=== PATIENT | male | born 1960 | race Caucasian/White ===

== ENCOUNTER 2023-06-19 11:48 | Inpatient (IN) | payer MEDICARE ==
[2023-06-20] MEDS ORDERED: Hyoscyamine SL 0.125 MG TAB PO PRN (12:59)
[2023-06-20] MEDS ORDERED: Bisacodyl 5 MG TAB PO PRN (13:02)
[2023-06-20] MEDS ORDERED: Ondansetron ODT 4 MG TAB SL PRN (13:02)
[2023-06-20] MEDS ORDERED: FLU VACC QS2023(65UP)/MF59C/PF 60 MCG/0.5 ML SYRINGE IM ONE (17:00)
[2023-06-20] MEDS: Terazosin HCl 1 MG CAP PO SCH (20:40)
[2023-06-20] MEDS: Acetaminophen 325 MG TAB PO PRN (20:41)
[2023-06-20] MEDS: levETIRAcetam 500 MG TAB PO SCH (20:41)
[2023-06-20] MEDS: traZODone HCl 50 MG TAB PO SCH (20:41)
[2023-06-20] MEDS: Amantadine HCl 100 mg Capsule PO SCH (20:42)
[2023-06-20] MEDS: Metoprolol Tartrate 50 MG TAB PO SCH (20:42)
[2023-06-20] MEDS: Donepezil HCl 5 MG TAB PO SCH (20:42)
[2023-06-20] MEDS: QUEtiapine 25 MG TAB PO SCH (20:42)
[2023-06-20] MEDS: Melatonin 3 MG TAB PO SCH (20:42)
[2023-06-20] MEDS: Famotidine 20 MG TAB PO SCH (20:42)
[2023-06-20] MEDS: Atorvastatin Calcium 10 MG TAB PO SCH (20:42)
[2023-06-21] MEDS: Acetaminophen 325 MG TAB PO PRN ×3 (03:03→20:30)
[2023-06-21 05:33] LABS: #Basophils 0.1 thou/uL (0.0-0.2); #Eosinphils 0.2 thou/uL (0.0-0.7); #Lymphocytes 1.7 thou/uL (1.20-3.40); #Monocytes 0.6 thou/uL (0.11-0.59); #Neutrophils 3.1 thou/uL (1.40-6.50); %Basophils 1.3 % (0.0-1.0); %Eosinophils 2.8 % (0.0-10.0); %Lymphocytes 29.8 % (21.0-51.0); %Monocytes 10.7 % (0.0-10.0); %Neutrophils 55.4 % (42.0-75.0); Hematocrit 47.6 % (42.0-52.0); Mean Corpuscular HGB CONC 33.6 g/dL (32.0-36.0); Mean Corpuscular Hemoglobin 31.3 pg (27.0-31.0); Mean Corpuscular Volume 93.3 fl (78.0-98.0); Mean Platelet Volume 9.3 fL (7.4-10.4); Platelet Count 209 10x3/uL (130-400); RBC Distribution Width 12.3 % (11.5-14.5); White Blood Cell (WBC) Count 5.7 10x3/uL (4.8-10.8)
[2023-06-21 05:47] LABS: ALT (SGPT) 17 U/L (8-55); AST (SGOT) 17 U/L (5-34); Albumin 4.2 g/dL (3.4-4.8); Alkaline Phosphatase 92 U/L (40-110); Anion Gap 12 mmol/L (10-20); BUN (Urea Nitrogen) 12 mg/dL (8.4-25.7); Bilirubin, Total 0.5 mg/dL (0.2-1.2); Calc. Creatinine Clearance 125 mL/min (70-130); Calcium 9.9 mg/dL (7.8-10.44); Carbon Dioxide 29 mmol/L (23-31); Chloride 105 mmol/L (98-107); Estimated GFR 97; Globulin 2.5 g/dL (2.4-3.5); Glucose 91 mg/dL (80-115); Potassium 4.4 mmol/L (3.5-5.1); Protein, Total 6.7 g/dL (5.8-8.1); Sodium 142 mmol/L (136-145)
[2023-06-21] MEDS: Venlafaxine HCl 25 MG TAB PO SCH (08:16)
[2023-06-21] MEDS: levETIRAcetam 500 MG TAB PO SCH ×2 (08:19→20:30)
[2023-06-21] MEDS: Amlodipine 10 MG TAB PO SCH (08:20)
[2023-06-21] MEDS: Senokot S 8.6-50 MG TAB PO PRN (08:21)
[2023-06-21] MEDS: Losartan 25 MG TAB PO SCH (08:21)
[2023-06-21] MEDS: Metoprolol Tartrate 50 MG TAB PO SCH ×2 (08:21→20:31)
[2023-06-21] MEDS: Famotidine 20 MG TAB PO SCH ×2 (08:21→20:32)
[2023-06-21] MEDS: Allopurinol 100 MG TAB PO SCH (08:22)
[2023-06-21] MEDS: Amantadine HCl 100 mg Capsule PO SCH ×2 (08:22→20:31)
[2023-06-21] MEDS ORDERED: Hyoscyamine SL 0.125 MG TAB PO PRN (12:00)
[2023-06-21] MEDS: traZODone HCl 50 MG TAB PO SCH (20:30)
[2023-06-21] MEDS: Terazosin HCl 1 MG CAP PO SCH (20:30)
[2023-06-21] MEDS: QUEtiapine 25 MG TAB PO SCH (20:31)
[2023-06-21] MEDS: Donepezil HCl 5 MG TAB PO SCH (20:31)
[2023-06-21] MEDS: Melatonin 3 MG TAB PO SCH (20:31)
[2023-06-21] MEDS: Atorvastatin Calcium 10 MG TAB PO SCH (20:32)
[2023-06-21] MEDS: Artificial Tear Sol 15 ML BOT EA EYE PRN (20:35)
[2023-06-21] MEDS: tiZANidine HCl 4 MG TAB PO PRN (20:36)
[2023-06-22] MEDS: Acetaminophen 325 MG TAB PO PRN (01:50)
[2023-06-22] MEDS: Venlafaxine HCl 25 MG TAB PO SCH (08:14)
[2023-06-22] MEDS: levETIRAcetam 500 MG TAB PO SCH ×2 (08:14→20:15)
[2023-06-22] MEDS: Famotidine 20 MG TAB PO SCH ×2 (08:15→20:15)
[2023-06-22] MEDS: Amantadine HCl 100 mg Capsule PO SCH ×2 (08:15→20:16)
[2023-06-22] MEDS: Amlodipine 10 MG TAB PO SCH (08:15)
[2023-06-22] MEDS: Allopurinol 100 MG TAB PO SCH (08:15)
[2023-06-22] MEDS: Metoprolol Tartrate 50 MG TAB PO SCH ×2 (08:15→20:16)
[2023-06-22] MEDS: Losartan 25 MG TAB PO SCH (08:16)
[2023-06-22] MEDS: Artificial Tear Sol 15 ML BOT EA EYE PRN ×2 (08:16→20:44)
[2023-06-22] MEDS: tiZANidine HCl 4 MG TAB PO PRN (20:14)
[2023-06-22] MEDS: Melatonin 3 MG TAB PO SCH (20:15)
[2023-06-22] MEDS: Terazosin HCl 1 MG CAP PO SCH (20:15)
[2023-06-22] MEDS: QUEtiapine 25 MG TAB PO SCH (20:16)
[2023-06-22] MEDS: traZODone HCl 50 MG TAB PO SCH (20:16)
[2023-06-22] MEDS: Atorvastatin Calcium 10 MG TAB PO SCH (20:16)
[2023-06-22] MEDS: Donepezil HCl 5 MG TAB PO SCH (20:16)
[2023-06-23] MEDS: Acetaminophen 325 MG TAB PO PRN (03:11)
[2023-06-23 05:21] LABS: #Eosinphils 0.2 thou/uL (0.0-0.7); #Lymphocytes 1.8 thou/uL (1.20-3.40); #Monocytes 0.7 thou/uL (0.11-0.59); #Neutrophils 3.8 thou/uL (1.40-6.50); %Basophils 0.7 % (0.0-1.0); %Eosinophils 2.5 % (0.0-10.0); %Lymphocytes 27.3 % (21.0-51.0); %Monocytes 10.8 % (0.0-10.0); %Neutrophils 58.8 % (42.0-75.0); Hematocrit 48.5 % (42.0-52.0); Hemoglobin 16.6 g/dL (14.0-18.0); Mean Corpuscular HGB CONC 34.1 g/dL (32.0-36.0); Mean Corpuscular Hemoglobin 31.8 pg (27.0-31.0); Mean Corpuscular Volume 93.3 fl (78.0-98.0); Mean Platelet Volume 8.5 fL (7.4-10.4); Platelet Count 195 10x3/uL (130-400); RBC Distribution Width 12.2 % (11.5-14.5); White Blood Cell (WBC) Count 6.5 10x3/uL (4.8-10.8)
[2023-06-23 05:35] LABS: Anion Gap 14 mmol/L (10-20); Calc. Creatinine Clearance 126 mL/min (70-130); Calcium 9.7 mg/dL (7.8-10.44); Carbon Dioxide 25 mmol/L (23-31); Chloride 105 mmol/L (98-107); Estimated GFR 99; Glucose 96 mg/dL (80-115); Potassium 4.1 mmol/L (3.5-5.1); Sodium 140 mmol/L (136-145)
[2023-06-23] MEDS: levETIRAcetam 500 MG TAB PO SCH ×2 (08:55→21:09)
[2023-06-23] MEDS: Losartan 25 MG TAB PO SCH (08:55)
[2023-06-23] MEDS: Famotidine 20 MG TAB PO SCH ×2 (08:55→21:10)
[2023-06-23] MEDS: Amlodipine 10 MG TAB PO SCH (08:55)
[2023-06-23] MEDS: Allopurinol 100 MG TAB PO SCH (08:55)
[2023-06-23] MEDS: Amantadine HCl 100 mg Capsule PO SCH ×2 (08:55→21:10)
[2023-06-23] MEDS: Metoprolol Tartrate 50 MG TAB PO SCH ×2 (08:55→21:10)
[2023-06-23] MEDS: Venlafaxine HCl 25 MG TAB PO SCH (08:56)
[2023-06-23] MEDS: Artificial Tear Sol 15 ML BOT EA EYE PRN (08:57)
[2023-06-23] MEDS: Melatonin 3 MG TAB PO SCH (21:09)
[2023-06-23] MEDS: Terazosin HCl 1 MG CAP PO SCH (21:09)
[2023-06-23] MEDS: traZODone HCl 50 MG TAB PO SCH (21:09)
[2023-06-23] MEDS: Atorvastatin Calcium 10 MG TAB PO SCH (21:10)
[2023-06-23] MEDS: Donepezil HCl 5 MG TAB PO SCH (21:10)
[2023-06-23] MEDS: QUEtiapine 25 MG TAB PO SCH (21:10)
[2023-06-23] MEDS: tiZANidine HCl 4 MG TAB PO PRN (22:34)
[2023-06-24] MEDS: levETIRAcetam 500 MG TAB PO SCH ×2 (08:49→20:59)
[2023-06-24] MEDS: Amlodipine 10 MG TAB PO SCH (08:49)
[2023-06-24] MEDS: Venlafaxine HCl 25 MG TAB PO SCH (08:49)
[2023-06-24] MEDS: Metoprolol Tartrate 50 MG TAB PO SCH ×2 (08:50→20:59)
[2023-06-24] MEDS: Famotidine 20 MG TAB PO SCH ×2 (08:50→20:59)
[2023-06-24] MEDS: Allopurinol 100 MG TAB PO SCH (08:50)
[2023-06-24] MEDS: Losartan 25 MG TAB PO SCH (08:50)
[2023-06-24] MEDS: Acetaminophen 325 MG TAB PO PRN (08:50)
[2023-06-24] MEDS: Amantadine HCl 100 mg Capsule PO SCH ×2 (08:51→20:58)
[2023-06-24] MEDS: Terazosin HCl 1 MG CAP PO SCH (20:58)
[2023-06-24] MEDS: tiZANidine HCl 4 MG TAB PO PRN (20:58)
[2023-06-24] MEDS: Atorvastatin Calcium 10 MG TAB PO SCH (20:58)
[2023-06-24] MEDS: traZODone HCl 50 MG TAB PO SCH (20:59)
[2023-06-24] MEDS: Donepezil HCl 5 MG TAB PO SCH (20:59)
[2023-06-24] MEDS: QUEtiapine 25 MG TAB PO SCH (20:59)
[2023-06-24] MEDS: Melatonin 3 MG TAB PO SCH (20:59)
[2023-06-25] MEDS: Acetaminophen 325 MG TAB PO PRN ×2 (02:03→15:58)
[2023-06-25] MEDS: Artificial Tear Sol 15 ML BOT EA EYE PRN (08:24)
[2023-06-25] MEDS: levETIRAcetam 500 MG TAB PO SCH ×2 (08:26→21:10)
[2023-06-25] MEDS: Famotidine 20 MG TAB PO SCH ×2 (08:26→21:09)
[2023-06-25] MEDS: Amlodipine 10 MG TAB PO SCH (08:26)
[2023-06-25] MEDS: Metoprolol Tartrate 50 MG TAB PO SCH ×2 (08:26→21:10)
[2023-06-25] MEDS: Losartan 25 MG TAB PO SCH (08:26)
[2023-06-25] MEDS: Venlafaxine HCl 25 MG TAB PO SCH (08:27)
[2023-06-25] MEDS: Amantadine HCl 100 mg Capsule PO SCH ×2 (08:27→21:09)
[2023-06-25] MEDS: Allopurinol 100 MG TAB PO SCH (08:27)
[2023-06-25] MEDS: tiZANidine HCl 4 MG TAB PO PRN ×2 (11:57→21:10)
[2023-06-25] MEDS: QUEtiapine 25 MG TAB PO SCH (21:09)
[2023-06-25] MEDS: Atorvastatin Calcium 10 MG TAB PO SCH (21:09)
[2023-06-25] MEDS: Melatonin 3 MG TAB PO SCH (21:09)
[2023-06-25] MEDS: Senokot S 8.6-50 MG TAB PO PRN (21:09)
[2023-06-25] MEDS: Donepezil HCl 5 MG TAB PO SCH (21:09)
[2023-06-25] MEDS: traZODone HCl 50 MG TAB PO SCH (21:10)
[2023-06-25] MEDS: Terazosin HCl 1 MG CAP PO SCH (21:10)
[2023-06-26] MEDS: Acetaminophen 325 MG TAB PO PRN ×2 (04:38→20:47)
[2023-06-26] MEDS: Metoprolol Tartrate 50 MG TAB PO SCH ×2 (09:46→20:48)
[2023-06-26] MEDS: Losartan 25 MG TAB PO SCH (09:46)
[2023-06-26] MEDS: levETIRAcetam 500 MG TAB PO SCH ×2 (09:46→20:48)
[2023-06-26] MEDS: Amantadine HCl 100 mg Capsule PO SCH ×2 (09:46→20:48)
[2023-06-26] MEDS: Venlafaxine HCl 25 MG TAB PO SCH (09:46)
[2023-06-26] MEDS: Allopurinol 100 MG TAB PO SCH (09:47)
[2023-06-26] MEDS: Famotidine 20 MG TAB PO SCH ×2 (09:47→20:46)
[2023-06-26] MEDS: Amlodipine 10 MG TAB PO SCH (09:47)
[2023-06-26] MEDS: Artificial Tear Sol 15 ML BOT EA EYE PRN (13:51)
[2023-06-26] MEDS: Melatonin 3 MG TAB PO SCH (20:46)
[2023-06-26] MEDS: Terazosin HCl 1 MG CAP PO SCH (20:47)
[2023-06-26] MEDS: traZODone HCl 50 MG TAB PO SCH (20:47)
[2023-06-26] MEDS: tiZANidine HCl 4 MG TAB PO PRN (20:48)
[2023-06-26] MEDS: QUEtiapine 25 MG TAB PO SCH (20:48)
[2023-06-26] MEDS: Donepezil HCl 5 MG TAB PO SCH (20:49)
[2023-06-26] MEDS: Atorvastatin Calcium 10 MG TAB PO SCH (20:49)
[2023-06-27] MEDS: Acetaminophen 325 MG TAB PO PRN ×2 (02:41→20:31)
[2023-06-27] MEDS: Artificial Tear Sol 15 ML BOT EA EYE PRN ×2 (09:09→20:31)
[2023-06-27] MEDS: Venlafaxine HCl 25 MG TAB PO SCH (09:11)
[2023-06-27] MEDS: levETIRAcetam 500 MG TAB PO SCH ×2 (09:12→20:39)
[2023-06-27] MEDS: Amantadine HCl 100 mg Capsule PO SCH ×2 (09:13→20:39)
[2023-06-27] MEDS: Losartan 25 MG TAB PO SCH (09:13)
[2023-06-27] MEDS: Allopurinol 100 MG TAB PO SCH (09:13)
[2023-06-27] MEDS: Famotidine 20 MG TAB PO SCH ×2 (09:14→20:40)
[2023-06-27] MEDS: Metoprolol Tartrate 50 MG TAB PO SCH ×2 (09:14→20:39)
[2023-06-27] MEDS: Amlodipine 10 MG TAB PO SCH (09:14)
[2023-06-27] MEDS: Terazosin HCl 1 MG CAP PO SCH (20:39)
[2023-06-27] MEDS: Atorvastatin Calcium 10 MG TAB PO SCH (20:39)
[2023-06-27] MEDS: Melatonin 3 MG TAB PO SCH (20:39)
[2023-06-27] MEDS: Donepezil HCl 5 MG TAB PO SCH (20:39)
[2023-06-27] MEDS: traZODone HCl 50 MG TAB PO SCH (20:39)
[2023-06-27] MEDS: QUEtiapine 25 MG TAB PO SCH (20:40)
[2023-06-28] MEDS: Famotidine 20 MG TAB PO SCH ×2 (08:28→21:04)
[2023-06-28] MEDS: Losartan 25 MG TAB PO SCH (08:28)
[2023-06-28] MEDS: levETIRAcetam 500 MG TAB PO SCH ×2 (08:28→21:04)
[2023-06-28] MEDS: Metoprolol Tartrate 50 MG TAB PO SCH ×2 (08:28→21:04)
[2023-06-28] MEDS: Amlodipine 10 MG TAB PO SCH (08:28)
[2023-06-28] MEDS: Allopurinol 100 MG TAB PO SCH (08:29)
[2023-06-28] MEDS: Venlafaxine HCl 25 MG TAB PO SCH (08:29)
[2023-06-28] MEDS: Amantadine HCl 100 mg Capsule PO SCH ×2 (08:29→21:04)
[2023-06-28] MEDS: traZODone HCl 50 MG TAB PO SCH (21:03)
[2023-06-28] MEDS: Atorvastatin Calcium 10 MG TAB PO SCH (21:03)
[2023-06-28] MEDS: Donepezil HCl 5 MG TAB PO SCH (21:03)
[2023-06-28] MEDS: Melatonin 3 MG TAB PO SCH (21:04)
[2023-06-28] MEDS: Acetaminophen 325 MG TAB PO PRN (21:04)
[2023-06-28] MEDS: Terazosin HCl 1 MG CAP PO SCH (21:04)
[2023-06-28] MEDS: QUEtiapine 25 MG TAB PO SCH (21:04)
[2023-06-28] MEDS: Artificial Tear Sol 15 ML BOT EA EYE PRN (21:06)
[2023-06-29] MEDS: Losartan 25 MG TAB PO SCH (08:32)
[2023-06-29] MEDS: Metoprolol Tartrate 50 MG TAB PO SCH ×2 (08:32→20:45)
[2023-06-29] MEDS: Venlafaxine HCl 25 MG TAB PO SCH (08:32)
[2023-06-29] MEDS: levETIRAcetam 500 MG TAB PO SCH ×2 (08:32→20:44)
[2023-06-29] MEDS: Famotidine 20 MG TAB PO SCH ×2 (08:33→20:45)
[2023-06-29] MEDS: Amlodipine 10 MG TAB PO SCH (08:33)
[2023-06-29] MEDS: Amantadine HCl 100 mg Capsule PO SCH ×2 (08:33→20:44)
[2023-06-29] MEDS: Allopurinol 100 MG TAB PO SCH (08:33)
[2023-06-29] MEDS: Senokot S 8.6-50 MG TAB PO PRN (12:36)
[2023-06-29] MEDS: traZODone HCl 50 MG TAB PO SCH (20:44)
[2023-06-29] MEDS: Atorvastatin Calcium 10 MG TAB PO SCH (20:44)
[2023-06-29] MEDS: Melatonin 3 MG TAB PO SCH (20:44)
[2023-06-29] MEDS: QUEtiapine 25 MG TAB PO SCH (20:44)
[2023-06-29] MEDS: Donepezil HCl 5 MG TAB PO SCH (20:44)
[2023-06-29] MEDS: Terazosin HCl 1 MG CAP PO SCH (20:44)
[2023-06-29] MEDS: Acetaminophen 325 MG TAB PO PRN (20:45)
[2023-06-29] MEDS: Artificial Tear Sol 15 ML BOT EA EYE PRN (20:45)
[2023-06-30] MEDS: Amlodipine 10 MG TAB PO SCH (09:13)
[2023-06-30] MEDS: Metoprolol Tartrate 50 MG TAB PO SCH ×2 (09:13→20:32)
[2023-06-30] MEDS: Losartan 25 MG TAB PO SCH (09:13)
[2023-06-30] MEDS: Venlafaxine HCl 25 MG TAB PO SCH (09:13)
[2023-06-30] MEDS: levETIRAcetam 500 MG TAB PO SCH ×2 (09:13→20:33)
[2023-06-30] MEDS: Amantadine HCl 100 mg Capsule PO SCH ×2 (09:14→20:34)
[2023-06-30] MEDS: Famotidine 20 MG TAB PO SCH ×2 (09:14→20:33)
[2023-06-30] MEDS: Allopurinol 100 MG TAB PO SCH (09:14)
[2023-06-30] MEDS: Artificial Tear Sol 15 ML BOT EA EYE PRN (09:17)
[2023-06-30] MEDS ORDERED: Polyethylene Glycol 3350 17 GM Packet PO SCH (10:30)
[2023-06-30] MEDS: Acetaminophen 325 MG TAB PO PRN (20:31)
[2023-06-30] MEDS: Senokot S 8.6-50 MG TAB PO PRN (20:32)
[2023-06-30] MEDS: traZODone HCl 50 MG TAB PO SCH (20:32)
[2023-06-30] MEDS: QUEtiapine 25 MG TAB PO SCH (20:32)
[2023-06-30] MEDS: Terazosin HCl 1 MG CAP PO SCH (20:33)
[2023-06-30] MEDS: Melatonin 3 MG TAB PO SCH (20:33)
[2023-06-30] MEDS: Atorvastatin Calcium 10 MG TAB PO SCH (20:33)
[2023-06-30] MEDS: Donepezil HCl 5 MG TAB PO SCH (20:34)
[2023-07-01 06:12] LABS: #Basophils 0.1 thou/uL (0.0-0.2); #Eosinphils 0.2 thou/uL (0.0-0.7); #Lymphocytes 1.9 thou/uL (1.20-3.40); #Monocytes 0.6 thou/uL (0.11-0.59); #Neutrophils 3.2 thou/uL (1.40-6.50); %Eosinophils 2.6 % (0.0-10.0); %Neutrophils 54.3 % (42.0-75.0); Hematocrit 45.3 % (42.0-52.0); Hemoglobin 15.2 g/dL (14.0-18.0); Mean Corpuscular HGB CONC 33.6 g/dL (32.0-36.0); Mean Corpuscular Hemoglobin 31.6 pg (27.0-31.0); Mean Corpuscular Volume 93.9 fl (78.0-98.0); Mean Platelet Volume 8.7 fL (7.4-10.4); Platelet Count 225 10x3/uL (130-400); RBC Distribution Width 11.6 % (11.5-14.5); Red Blood Cell (RBC) Count 4.82 mill/uL (4.70-6.10); White Blood Cell (WBC) Count 5.9 10x3/uL (4.8-10.8)
[2023-07-01 06:21] LABS: Anion Gap 13 mmol/L (10-20); BUN (Urea Nitrogen) 15 mg/dL (8.4-25.7); Calc. Creatinine Clearance 120 mL/min (70-130); Calcium 9.6 mg/dL (7.8-10.44); Carbon Dioxide 26 mmol/L (23-31); Chloride 104 mmol/L (98-107); Estimated GFR 97; Glucose 94 mg/dL (80-115); Potassium 3.8 mmol/L (3.5-5.1); Sodium 139 mmol/L (136-145)
[2023-07-01] MEDS: Polyethylene Glycol 3350 17 GM Packet PO SCH (08:05)
[2023-07-01] MEDS: Amlodipine 10 MG TAB PO SCH (08:06)
[2023-07-01] MEDS: Metoprolol Tartrate 50 MG TAB PO SCH ×2 (08:06→21:12)
[2023-07-01] MEDS: Allopurinol 100 MG TAB PO SCH (08:06)
[2023-07-01] MEDS: Amantadine HCl 100 mg Capsule PO SCH ×2 (08:06→21:12)
[2023-07-01] MEDS: Losartan 25 MG TAB PO SCH (08:06)
[2023-07-01] MEDS: Venlafaxine HCl 25 MG TAB PO SCH (08:07)
[2023-07-01] MEDS: Famotidine 20 MG TAB PO SCH ×2 (08:07→21:12)
[2023-07-01] MEDS: Artificial Tear Sol 15 ML BOT EA EYE PRN (08:09)
[2023-07-01] MEDS ORDERED: levETIRAcetam 500 MG TAB ONE ×2 (08:13)
[2023-07-01] MEDS: Senokot S 8.6-50 MG TAB PO PRN (08:22)
[2023-07-01] MEDS: levETIRAcetam 500 MG TAB PO SCH ×2 (08:22→21:10)
[2023-07-01] MEDS: Terazosin HCl 1 MG CAP PO SCH (21:11)
[2023-07-01] MEDS: Melatonin 3 MG TAB PO SCH (21:11)
[2023-07-01] MEDS: Atorvastatin Calcium 10 MG TAB PO SCH (21:12)
[2023-07-01] MEDS: traZODone HCl 50 MG TAB PO SCH (21:12)
[2023-07-01] MEDS: QUEtiapine 25 MG TAB PO SCH (21:12)
[2023-07-01] MEDS: Donepezil HCl 5 MG TAB PO SCH (21:12)
[2023-07-02] MEDS: Venlafaxine HCl 25 MG TAB PO SCH (07:50)
[2023-07-02] MEDS: Senokot S 8.6-50 MG TAB PO PRN (07:50)
[2023-07-02] MEDS: Metoprolol Tartrate 50 MG TAB PO SCH ×2 (07:50→20:36)
[2023-07-02] MEDS: Polyethylene Glycol 3350 17 GM Packet PO SCH (07:50)
[2023-07-02] MEDS: levETIRAcetam 500 MG TAB PO SCH ×2 (07:51→20:35)
[2023-07-02] MEDS: Amlodipine 10 MG TAB PO SCH (07:51)
[2023-07-02] MEDS: Amantadine HCl 100 mg Capsule PO SCH ×2 (07:51→20:35)
[2023-07-02] MEDS: Famotidine 20 MG TAB PO SCH ×2 (07:51→20:35)
[2023-07-02] MEDS: Allopurinol 100 MG TAB PO SCH (07:51)
[2023-07-02] MEDS: Losartan 25 MG TAB PO SCH (07:51)
[2023-07-02] MEDS: QUEtiapine 25 MG TAB PO SCH (20:34)
[2023-07-02] MEDS: Terazosin HCl 1 MG CAP PO SCH (20:35)
[2023-07-02] MEDS: Melatonin 3 MG TAB PO SCH (20:35)
[2023-07-02] MEDS: Atorvastatin Calcium 10 MG TAB PO SCH (20:35)
[2023-07-02] MEDS: Donepezil HCl 5 MG TAB PO SCH (20:35)
[2023-07-02] MEDS: traZODone HCl 50 MG TAB PO SCH (20:36)
[2023-07-03] MEDS: levETIRAcetam 500 MG TAB PO SCH ×2 (08:05→20:34)
[2023-07-03] MEDS: Polyethylene Glycol 3350 17 GM Packet PO SCH (08:05)
[2023-07-03] MEDS: Metoprolol Tartrate 50 MG TAB PO SCH ×2 (08:05→20:36)
[2023-07-03] MEDS: Venlafaxine HCl 25 MG TAB PO SCH (08:06)
[2023-07-03] MEDS: Allopurinol 100 MG TAB PO SCH (08:06)
[2023-07-03] MEDS: Losartan 25 MG TAB PO SCH (08:07)
[2023-07-03] MEDS: Famotidine 20 MG TAB PO SCH ×2 (08:07→20:35)
[2023-07-03] MEDS: Artificial Tear Sol 15 ML BOT EA EYE PRN (08:07)
[2023-07-03] MEDS: Amlodipine 10 MG TAB PO SCH (08:08)
[2023-07-03] MEDS: Amantadine HCl 100 mg Capsule PO SCH ×2 (08:08→20:36)
[2023-07-03] MEDS: Acetaminophen 325 MG TAB PO PRN (14:02)
[2023-07-03] MEDS: QUEtiapine 25 MG TAB PO SCH (20:35)
[2023-07-03] MEDS: Melatonin 3 MG TAB PO SCH (20:35)
[2023-07-03] MEDS: Atorvastatin Calcium 10 MG TAB PO SCH (20:36)
[2023-07-03] MEDS: traZODone HCl 50 MG TAB PO SCH (20:36)
[2023-07-03] MEDS: Donepezil HCl 5 MG TAB PO SCH (20:36)
[2023-07-03] MEDS: Terazosin HCl 1 MG CAP PO SCH (20:36)
[2023-07-04] MEDS: levETIRAcetam 500 MG TAB PO SCH ×2 (07:45→20:49)
[2023-07-04] MEDS: Polyethylene Glycol 3350 17 GM Packet PO SCH (07:45)
[2023-07-04] MEDS: Amlodipine 10 MG TAB PO SCH (07:45)
[2023-07-04] MEDS: Famotidine 20 MG TAB PO SCH ×2 (07:46→20:47)
[2023-07-04] MEDS: Allopurinol 100 MG TAB PO SCH (07:46)
[2023-07-04] MEDS: Venlafaxine HCl 25 MG TAB PO SCH (07:47)
[2023-07-04] MEDS: Metoprolol Tartrate 50 MG TAB PO SCH ×2 (07:47→20:47)
[2023-07-04] MEDS: Amantadine HCl 100 mg Capsule PO SCH ×2 (07:47→20:49)
[2023-07-04] MEDS: Artificial Tear Sol 15 ML BOT EA EYE PRN ×2 (07:48→20:50)
[2023-07-04] MEDS: Losartan 25 MG TAB PO SCH (07:48)
[2023-07-04] MEDS: Bisacodyl 10 MG SUPP PR PRN (11:36)
[2023-07-04] MEDS: QUEtiapine 25 MG TAB PO SCH (20:47)
[2023-07-04] MEDS: tiZANidine HCl 4 MG TAB PO PRN (20:47)
[2023-07-04] MEDS: Terazosin HCl 1 MG CAP PO SCH (20:48)
[2023-07-04] MEDS: Acetaminophen 325 MG TAB PO PRN (20:48)
[2023-07-04] MEDS: Melatonin 3 MG TAB PO SCH (20:49)
[2023-07-04] MEDS: traZODone HCl 50 MG TAB PO SCH (20:49)
[2023-07-04] MEDS: Atorvastatin Calcium 10 MG TAB PO SCH (20:49)
[2023-07-04] MEDS: Donepezil HCl 5 MG TAB PO SCH (20:49)
[2023-07-05] MEDS: Acetaminophen 325 MG TAB PO PRN (06:44)
[2023-07-05] MEDS: tiZANidine HCl 4 MG TAB PO PRN (08:17)
[2023-07-05] MEDS: Venlafaxine HCl 25 MG TAB PO SCH (09:10)
[2023-07-05] MEDS: Artificial Tear Sol 15 ML BOT EA EYE PRN (09:10)
[2023-07-05] MEDS: levETIRAcetam 500 MG TAB PO SCH ×2 (09:11→20:32)
[2023-07-05] MEDS: Amantadine HCl 100 mg Capsule PO SCH ×2 (09:12→20:31)
[2023-07-05] MEDS: Amlodipine 10 MG TAB PO SCH (09:12)
[2023-07-05] MEDS: Metoprolol Tartrate 50 MG TAB PO SCH ×2 (09:12→20:33)
[2023-07-05] MEDS: Allopurinol 100 MG TAB PO SCH (09:12)
[2023-07-05] MEDS: Polyethylene Glycol 3350 17 GM Packet PO SCH (09:13)
[2023-07-05] MEDS: Famotidine 20 MG TAB PO SCH ×2 (09:13→20:33)
[2023-07-05] MEDS: Losartan 25 MG TAB PO SCH (09:13)
[2023-07-05] MEDS: Acetaminophen/Codeine 30-300mg Tablet PO PRN ×2 (11:50→20:31)
[2023-07-05] MEDS: Senokot S 8.6-50 MG TAB PO PRN (20:30)
[2023-07-05] MEDS: Melatonin 3 MG TAB PO SCH (20:31)
[2023-07-05] MEDS: QUEtiapine 25 MG TAB PO SCH (20:31)
[2023-07-05] MEDS: traZODone HCl 50 MG TAB PO SCH (20:31)
[2023-07-05] MEDS: Terazosin HCl 1 MG CAP PO SCH (20:31)
[2023-07-05] MEDS: Baclofen 10 MG TAB PO SCH (20:32)
[2023-07-05] MEDS: Donepezil HCl 5 MG TAB PO SCH (20:33)
[2023-07-05] MEDS: Atorvastatin Calcium 10 MG TAB PO SCH (20:33)
[2023-07-06] MEDS: Amantadine HCl 100 mg Capsule PO SCH ×2 (09:47→21:02)
[2023-07-06] MEDS: Allopurinol 100 MG TAB PO SCH (09:47)
[2023-07-06] MEDS: Amlodipine 10 MG TAB PO SCH (09:48)
[2023-07-06] MEDS: Famotidine 20 MG TAB PO SCH ×2 (09:48→21:02)
[2023-07-06] MEDS: Baclofen 10 MG TAB PO SCH ×2 (09:48→21:03)
[2023-07-06] MEDS: Metoprolol Tartrate 50 MG TAB PO SCH ×2 (09:49→21:03)
[2023-07-06] MEDS: levETIRAcetam 500 MG TAB PO SCH ×2 (09:49→21:03)
[2023-07-06] MEDS: Losartan 25 MG TAB PO SCH (09:49)
[2023-07-06] MEDS: Polyethylene Glycol 3350 17 GM Packet PO SCH (09:50)
[2023-07-06] MEDS: Venlafaxine HCl 25 MG TAB PO SCH (09:50)
[2023-07-06] MEDS ORDERED: Bisacodyl 10 MG SUPP PR SCH (10:30)
[2023-07-06] MEDS: Donepezil HCl 5 MG TAB PO SCH (21:02)
[2023-07-06] MEDS: Terazosin HCl 1 MG CAP PO SCH (21:02)
[2023-07-06] MEDS: Melatonin 3 MG TAB PO SCH (21:02)
[2023-07-06] MEDS: Atorvastatin Calcium 10 MG TAB PO SCH (21:02)
[2023-07-06] MEDS: QUEtiapine 25 MG TAB PO SCH (21:03)
[2023-07-06] MEDS: traZODone HCl 50 MG TAB PO SCH (21:03)
[2023-07-06] MEDS: Acetaminophen/Codeine 30-300mg Tablet PO PRN (21:20)
[2023-07-07 04:45] LABS: #Basophils 0.1 thou/uL (0.0-0.2); #Eosinphils 0.1 thou/uL (0.0-0.7); #Monocytes 0.6 thou/uL (0.11-0.59); #Neutrophils 2.7 thou/uL (1.40-6.50); %Basophils 1.3 % (0.0-1.0); %Eosinophils 2.5 % (0.0-10.0); %Lymphocytes 36.4 % (21.0-51.0); %Monocytes 10.5 % (0.0-10.0); %Neutrophils 49.3 % (42.0-75.0); Hematocrit 45.1 % (42.0-52.0); Hemoglobin 15.4 g/dL (14.0-18.0); Mean Corpuscular HGB CONC 34.1 g/dL (32.0-36.0); Mean Corpuscular Hemoglobin 31.6 pg (27.0-31.0); Mean Corpuscular Volume 92.7 fl (78.0-98.0); Mean Platelet Volume 8.8 fL (7.4-10.4); Platelet Count 211 10x3/uL (130-400); RBC Distribution Width 11.8 % (11.5-14.5); Red Blood Cell (RBC) Count 4.87 mill/uL (4.70-6.10); White Blood Cell (WBC) Count 5.4 10x3/uL (4.8-10.8)
[2023-07-07 05:02] LABS: Anion Gap 15 mmol/L (10-20); BUN (Urea Nitrogen) 16 mg/dL (8.4-25.7); Calc. Creatinine Clearance 112 mL/min (70-130); Calcium 9.5 mg/dL (7.8-10.44); Carbon Dioxide 25 mmol/L (23-31); Chloride 105 mmol/L (98-107); Estimated GFR 95; Glucose 86 mg/dL (80-115); Potassium 3.8 mmol/L (3.5-5.1); Sodium 141 mmol/L (136-145)
[2023-07-07] MEDS: Artificial Tear Sol 15 ML BOT EA EYE PRN (08:35)
[2023-07-07] MEDS: Polyethylene Glycol 3350 17 GM Packet PO SCH (08:35)
[2023-07-07] MEDS: Baclofen 10 MG TAB PO SCH ×2 (08:36→21:04)
[2023-07-07] MEDS: Famotidine 20 MG TAB PO SCH ×2 (08:36→21:03)
[2023-07-07] MEDS: Metoprolol Tartrate 50 MG TAB PO SCH ×2 (08:36→21:02)
[2023-07-07] MEDS: Amantadine HCl 100 mg Capsule PO SCH ×2 (08:36→21:04)
[2023-07-07] MEDS: levETIRAcetam 500 MG TAB PO SCH ×2 (08:36→21:02)
[2023-07-07] MEDS: Amlodipine 10 MG TAB PO SCH (08:36)
[2023-07-07] MEDS: Allopurinol 100 MG TAB PO SCH (08:36)
[2023-07-07] MEDS: Venlafaxine HCl 25 MG TAB PO SCH (08:37)
[2023-07-07] MEDS: Losartan 25 MG TAB PO SCH (08:37)
[2023-07-07] MEDS: Terazosin HCl 1 MG CAP PO SCH (21:02)
[2023-07-07] MEDS: Atorvastatin Calcium 10 MG TAB PO SCH (21:03)
[2023-07-07] MEDS: Donepezil HCl 5 MG TAB PO SCH (21:03)
[2023-07-07] MEDS: Melatonin 3 MG TAB PO SCH (21:03)
[2023-07-07] MEDS: traZODone HCl 50 MG TAB PO SCH (21:03)
[2023-07-07] MEDS: QUEtiapine 25 MG TAB PO SCH (21:04)
[2023-07-08] MEDS: Artificial Tear Sol 15 ML BOT EA EYE PRN (09:47)
[2023-07-08] MEDS: Venlafaxine HCl 25 MG TAB PO SCH (09:47)
[2023-07-08] MEDS: Famotidine 20 MG TAB PO SCH ×2 (09:48→20:50)
[2023-07-08] MEDS: Amantadine HCl 100 mg Capsule PO SCH ×2 (09:48→20:51)
[2023-07-08] MEDS: Allopurinol 100 MG TAB PO SCH (09:48)
[2023-07-08] MEDS: levETIRAcetam 500 MG TAB PO SCH ×2 (09:48→20:49)
[2023-07-08] MEDS: Metoprolol Tartrate 50 MG TAB PO SCH ×2 (09:48→20:58)
[2023-07-08] MEDS: Losartan 25 MG TAB PO SCH (09:48)
[2023-07-08] MEDS: Amlodipine 10 MG TAB PO SCH (09:49)
[2023-07-08] MEDS: Baclofen 10 MG TAB PO SCH ×2 (09:49→20:50)
[2023-07-08] MEDS: Acetaminophen 325 MG TAB PO PRN (09:49)
[2023-07-08] MEDS: Polyethylene Glycol 3350 17 GM Packet PO SCH (09:50)
[2023-07-08] MEDS: tiZANidine HCl 4 MG TAB PO PRN (17:29)
[2023-07-08] MEDS: Acetaminophen/Codeine 30-300mg Tablet PO PRN (17:30)
[2023-07-08] MEDS: Melatonin 3 MG TAB PO SCH (20:49)
[2023-07-08] MEDS: traZODone HCl 50 MG TAB PO SCH (20:50)
[2023-07-08] MEDS: Donepezil HCl 5 MG TAB PO SCH (20:50)
[2023-07-08] MEDS: QUEtiapine 25 MG TAB PO SCH (20:51)
[2023-07-08] MEDS: Terazosin HCl 1 MG CAP PO SCH (20:51)
[2023-07-08] MEDS: Atorvastatin Calcium 10 MG TAB PO SCH (20:51)
[2023-07-09] MEDS: Venlafaxine HCl 25 MG TAB PO SCH (09:33)
[2023-07-09] MEDS: Amlodipine 10 MG TAB PO SCH (09:33)
[2023-07-09] MEDS: Baclofen 10 MG TAB PO SCH ×2 (09:34→21:14)
[2023-07-09] MEDS: Amantadine HCl 100 mg Capsule PO SCH ×2 (09:34→21:13)
[2023-07-09] MEDS: Famotidine 20 MG TAB PO SCH ×2 (09:34→21:13)
[2023-07-09] MEDS: Losartan 25 MG TAB PO SCH (09:34)
[2023-07-09] MEDS: Metoprolol Tartrate 50 MG TAB PO SCH ×2 (09:34→21:13)
[2023-07-09] MEDS: levETIRAcetam 500 MG TAB PO SCH ×2 (09:34→21:14)
[2023-07-09] MEDS: Allopurinol 100 MG TAB PO SCH (09:34)
[2023-07-09] MEDS: Polyethylene Glycol 3350 17 GM Packet PO SCH (09:35)
[2023-07-09] MEDS: tiZANidine HCl 4 MG TAB PO PRN (16:22)
[2023-07-09] MEDS: Atorvastatin Calcium 10 MG TAB PO SCH (21:13)
[2023-07-09] MEDS: traZODone HCl 50 MG TAB PO SCH (21:13)
[2023-07-09] MEDS: Terazosin HCl 1 MG CAP PO SCH (21:14)
[2023-07-09] MEDS: QUEtiapine 25 MG TAB PO SCH (21:14)
[2023-07-09] MEDS: Melatonin 3 MG TAB PO SCH (21:14)
[2023-07-09] MEDS: Donepezil HCl 5 MG TAB PO SCH (21:14)
[2023-07-10] MEDS: tiZANidine HCl 4 MG TAB PO PRN (06:38)
[2023-07-10] MEDS: Venlafaxine HCl 25 MG TAB PO SCH (08:31)
[2023-07-10] MEDS: Polyethylene Glycol 3350 17 GM Packet PO SCH ×2 (08:31→08:46)
[2023-07-10] MEDS: Metoprolol Tartrate 50 MG TAB PO SCH ×2 (08:32→21:14)
[2023-07-10] MEDS: levETIRAcetam 500 MG TAB PO SCH ×2 (08:32→21:13)
[2023-07-10] MEDS: Amantadine HCl 100 mg Capsule PO SCH ×2 (08:33→21:14)
[2023-07-10] MEDS: Amlodipine 10 MG TAB PO SCH (08:33)
[2023-07-10] MEDS: Famotidine 20 MG TAB PO SCH ×2 (08:34→21:14)
[2023-07-10] MEDS: Losartan 25 MG TAB PO SCH (08:34)
[2023-07-10] MEDS: Allopurinol 100 MG TAB PO SCH (08:34)
[2023-07-10] MEDS: Baclofen 10 MG TAB PO SCH ×2 (08:34→21:14)
[2023-07-10 10:48] VITALS: BMI 29.4
[2023-07-10] MEDS: Donepezil HCl 5 MG TAB PO SCH (21:12)
[2023-07-10] MEDS: QUEtiapine 25 MG TAB PO SCH (21:12)
[2023-07-10] MEDS: Terazosin HCl 1 MG CAP PO SCH (21:13)
[2023-07-10] MEDS: Melatonin 3 MG TAB PO SCH (21:14)
[2023-07-10] MEDS: traZODone HCl 50 MG TAB PO SCH (21:14)
[2023-07-10] MEDS: Atorvastatin Calcium 10 MG TAB PO SCH (21:14)
[2023-07-10] MEDS: Acetaminophen 325 MG TAB PO PRN (21:21)
[2023-07-11] MEDS: Polyethylene Glycol 3350 17 GM Packet PO SCH (09:00)
[2023-07-11] MEDS: Amlodipine 10 MG TAB PO SCH (09:01)
[2023-07-11] MEDS: levETIRAcetam 500 MG TAB PO SCH ×2 (09:01→20:10)
[2023-07-11] MEDS: Famotidine 20 MG TAB PO SCH ×2 (09:02→20:11)
[2023-07-11] MEDS: Metoprolol Tartrate 50 MG TAB PO SCH ×2 (09:02→20:10)
[2023-07-11] MEDS: Baclofen 10 MG TAB PO SCH ×2 (09:02→20:11)
[2023-07-11] MEDS: Amantadine HCl 100 mg Capsule PO SCH ×2 (09:02→20:10)
[2023-07-11] MEDS: Allopurinol 100 MG TAB PO SCH (09:02)
[2023-07-11] MEDS: Venlafaxine HCl 25 MG TAB PO SCH (09:03)
[2023-07-11] MEDS: Losartan 25 MG TAB PO SCH (09:06)
[2023-07-11] MEDS: Acetaminophen 325 MG TAB PO PRN (09:13)
[2023-07-11] MEDS: Acetaminophen/Codeine 30-300mg Tablet PO PRN (16:54)
[2023-07-11] MEDS: QUEtiapine 25 MG TAB PO SCH (20:10)
[2023-07-11] MEDS: Atorvastatin Calcium 10 MG TAB PO SCH (20:10)
[2023-07-11] MEDS: traZODone HCl 50 MG TAB PO SCH (20:10)
[2023-07-11] MEDS: Donepezil HCl 5 MG TAB PO SCH (20:11)
[2023-07-11] MEDS: Terazosin HCl 1 MG CAP PO SCH (20:11)
[2023-07-11] MEDS: Melatonin 3 MG TAB PO SCH (20:11)
[2023-07-12] MEDS: Artificial Tear Sol 15 ML BOT EA EYE PRN (09:36)
[2023-07-12] MEDS: Famotidine 20 MG TAB PO SCH ×2 (09:37→20:25)
[2023-07-12] MEDS: Losartan 25 MG TAB PO SCH (09:37)
[2023-07-12] MEDS: Venlafaxine HCl 25 MG TAB PO SCH (09:37)
[2023-07-12] MEDS: Allopurinol 100 MG TAB PO SCH (09:37)
[2023-07-12] MEDS: levETIRAcetam 500 MG TAB PO SCH ×2 (09:37→20:24)
[2023-07-12] MEDS: Amlodipine 10 MG TAB PO SCH (09:38)
[2023-07-12] MEDS: Baclofen 10 MG TAB PO SCH ×2 (09:38→20:25)
[2023-07-12] MEDS: Amantadine HCl 100 mg Capsule PO SCH ×2 (09:38→20:25)
[2023-07-12] MEDS: Metoprolol Tartrate 50 MG TAB PO SCH ×2 (09:39→20:24)
[2023-07-12] MEDS: Polyethylene Glycol 3350 17 GM Packet PO SCH (09:39)
[2023-07-12] MEDS: Acetaminophen/Codeine 30-300mg Tablet PO PRN ×2 (13:04→20:23)
[2023-07-12] MEDS: Senokot S 8.6-50 MG TAB PO PRN (13:57)
[2023-07-12] MEDS: Atorvastatin Calcium 10 MG TAB PO SCH (20:24)
[2023-07-12] MEDS: Melatonin 3 MG TAB PO SCH (20:24)
[2023-07-12] MEDS: Terazosin HCl 1 MG CAP PO SCH (20:25)
[2023-07-12] MEDS: QUEtiapine 25 MG TAB PO SCH (20:25)
[2023-07-12] MEDS: traZODone HCl 50 MG TAB PO SCH (20:25)
[2023-07-12] MEDS: Donepezil HCl 5 MG TAB PO SCH (20:25)
[2023-07-13] MEDS: Acetaminophen/Codeine 30-300mg Tablet PO PRN ×4 (02:05→20:52)
[2023-07-13 06:20] LABS: #Basophils 0.1 thou/uL (0.0-0.2); #Eosinphils 0.1 thou/uL (0.0-0.7); #Lymphocytes 1.8 thou/uL (1.20-3.40); #Monocytes 0.5 thou/uL (0.11-0.59); #Neutrophils 2.8 thou/uL (1.40-6.50); %Basophils 1.1 % (0.0-1.0); %Lymphocytes 33.4 % (21.0-51.0); %Monocytes 9.9 % (0.0-10.0); %Neutrophils 53.7 % (42.0-75.0); Hematocrit 45.4 % (42.0-52.0); Hemoglobin 15.1 g/dL (14.0-18.0); Mean Corpuscular HGB CONC 33.4 g/dL (32.0-36.0); Mean Corpuscular Hemoglobin 31.1 pg (27.0-31.0); Mean Corpuscular Volume 93.3 fl (78.0-98.0); Mean Platelet Volume 8.6 fL (7.4-10.4); Platelet Count 207 10x3/uL (130-400); RBC Distribution Width 11.8 % (11.5-14.5); Red Blood Cell (RBC) Count 4.86 mill/uL (4.70-6.10); White Blood Cell (WBC) Count 5.3 10x3/uL (4.8-10.8)
[2023-07-13 06:30] LABS: Anion Gap 14 mmol/L (10-20); BUN (Urea Nitrogen) 14 mg/dL (8.4-25.7); Calc. Creatinine Clearance 126 mL/min (70-130); Calcium 9.4 mg/dL (7.8-10.44); Carbon Dioxide 24 mmol/L (23-31); Chloride 107 mmol/L (98-107); Estimated GFR 99; Glucose 94 mg/dL (80-115); Potassium 3.8 mmol/L (3.5-5.1); Sodium 141 mmol/L (136-145)
[2023-07-13] MEDS: Polyethylene Glycol 3350 17 GM Packet PO SCH (08:22)
[2023-07-13] MEDS: Venlafaxine HCl 25 MG TAB PO SCH (08:23)
[2023-07-13] MEDS: Losartan 25 MG TAB PO SCH (08:23)
[2023-07-13] MEDS: Amantadine HCl 100 mg Capsule PO SCH ×2 (08:23→20:54)
[2023-07-13] MEDS: Allopurinol 100 MG TAB PO SCH (08:23)
[2023-07-13] MEDS: Famotidine 20 MG TAB PO SCH ×2 (08:23→20:53)
[2023-07-13] MEDS: Baclofen 10 MG TAB PO SCH ×2 (08:24→20:53)
[2023-07-13] MEDS: Amlodipine 10 MG TAB PO SCH (08:24)
[2023-07-13] MEDS: Artificial Tear Sol 15 ML BOT EA EYE PRN (08:24)
[2023-07-13] MEDS: Metoprolol Tartrate 50 MG TAB PO SCH ×2 (08:24→20:53)
[2023-07-13] MEDS: levETIRAcetam 500 MG TAB PO SCH ×2 (08:24→20:53)
[2023-07-13] MEDS: Terazosin HCl 1 MG CAP PO SCH (20:53)
[2023-07-13] MEDS: QUEtiapine 25 MG TAB PO SCH (20:54)
[2023-07-13] MEDS: Atorvastatin Calcium 10 MG TAB PO SCH (20:54)
[2023-07-13] MEDS: Donepezil HCl 5 MG TAB PO SCH (20:54)
[2023-07-13] MEDS: Melatonin 3 MG TAB PO SCH (20:54)
[2023-07-13] MEDS: traZODone HCl 50 MG TAB PO SCH (20:54)
[2023-07-14] MEDS: Allopurinol 100 MG TAB PO SCH (08:22)
[2023-07-14] MEDS: Famotidine 20 MG TAB PO SCH ×2 (08:22→20:20)
[2023-07-14] MEDS: Amantadine HCl 100 mg Capsule PO SCH ×2 (08:22→20:20)
[2023-07-14] MEDS: Baclofen 10 MG TAB PO SCH ×2 (08:22→20:20)
[2023-07-14] MEDS: Losartan 25 MG TAB PO SCH (08:22)
[2023-07-14] MEDS: Metoprolol Tartrate 50 MG TAB PO SCH ×2 (08:23→20:20)
[2023-07-14] MEDS: Artificial Tear Sol 15 ML BOT EA EYE PRN (08:23)
[2023-07-14] MEDS: Venlafaxine HCl 25 MG TAB PO SCH (08:23)
[2023-07-14] MEDS: Amlodipine 10 MG TAB PO SCH (08:23)
[2023-07-14] MEDS: levETIRAcetam 500 MG TAB PO SCH ×2 (08:23→20:20)
[2023-07-14] MEDS: Polyethylene Glycol 3350 17 GM Packet PO SCH (08:23)
[2023-07-14] MEDS: Bisacodyl 10 MG SUPP PR PRN (11:25)
[2023-07-14] MEDS: Acetaminophen/Codeine 30-300mg Tablet PO PRN (15:20)
[2023-07-14] MEDS: traZODone HCl 50 MG TAB PO SCH (20:19)
[2023-07-14] MEDS: Terazosin HCl 1 MG CAP PO SCH (20:20)
[2023-07-14] MEDS: Donepezil HCl 5 MG TAB PO SCH (20:20)
[2023-07-14] MEDS: Atorvastatin Calcium 10 MG TAB PO SCH (20:20)
[2023-07-14] MEDS: QUEtiapine 25 MG TAB PO SCH (20:20)
[2023-07-14] MEDS: Melatonin 3 MG TAB PO SCH (20:20)
[2023-07-15] MEDS: Polyethylene Glycol 3350 17 GM Packet PO SCH (08:49)
[2023-07-15] MEDS: Allopurinol 100 MG TAB PO SCH (08:51)
[2023-07-15] MEDS: Amantadine HCl 100 mg Capsule PO SCH ×2 (08:51→20:30)
[2023-07-15] MEDS: levETIRAcetam 500 MG TAB PO SCH ×2 (08:51→20:30)
[2023-07-15] MEDS: Famotidine 20 MG TAB PO SCH ×2 (08:51→20:31)
[2023-07-15] MEDS: Baclofen 10 MG TAB PO SCH ×2 (08:51→20:30)
[2023-07-15] MEDS: Losartan 25 MG TAB PO SCH (08:51)
[2023-07-15] MEDS: Metoprolol Tartrate 50 MG TAB PO SCH ×2 (08:52→20:31)
[2023-07-15] MEDS: Venlafaxine HCl 25 MG TAB PO SCH (08:52)
[2023-07-15] MEDS: Amlodipine 10 MG TAB PO SCH (08:52)
[2023-07-15] MEDS: Acetaminophen 325 MG TAB PO PRN ×2 (10:15→21:53)
[2023-07-15] MEDS: tiZANidine HCl 4 MG TAB PO PRN ×2 (14:17→21:53)
[2023-07-15] MEDS: Acetaminophen/Codeine 30-300mg Tablet PO PRN (17:19)
[2023-07-15] MEDS: Terazosin HCl 1 MG CAP PO SCH (20:30)
[2023-07-15] MEDS: QUEtiapine 25 MG TAB PO SCH (20:30)
[2023-07-15] MEDS: Donepezil HCl 5 MG TAB PO SCH (20:31)
[2023-07-15] MEDS: traZODone HCl 50 MG TAB PO SCH (20:31)
[2023-07-15] MEDS: Atorvastatin Calcium 10 MG TAB PO SCH (20:31)
[2023-07-15] MEDS: Melatonin 3 MG TAB PO SCH (20:31)
[2023-07-16] MEDS: Amlodipine 10 MG TAB PO SCH (09:07)
[2023-07-16] MEDS: Polyethylene Glycol 3350 17 GM Packet PO SCH (09:07)
[2023-07-16] MEDS: Famotidine 20 MG TAB PO SCH ×2 (09:07→20:33)
[2023-07-16] MEDS: Amantadine HCl 100 mg Capsule PO SCH ×2 (09:07→20:33)
[2023-07-16] MEDS: Allopurinol 100 MG TAB PO SCH (09:07)
[2023-07-16] MEDS: Baclofen 10 MG TAB PO SCH ×2 (09:07→20:34)
[2023-07-16] MEDS: Venlafaxine HCl 25 MG TAB PO SCH (09:08)
[2023-07-16] MEDS: levETIRAcetam 500 MG TAB PO SCH ×2 (09:08→20:34)
[2023-07-16] MEDS: Losartan 25 MG TAB PO SCH (09:08)
[2023-07-16] MEDS: Metoprolol Tartrate 50 MG TAB PO SCH ×2 (09:08→20:33)
[2023-07-16] MEDS: Artificial Tear Sol 15 ML BOT EA EYE PRN ×2 (09:09→20:28)
[2023-07-16] MEDS: Acetaminophen/Codeine 30-300mg Tablet PO PRN ×2 (13:56→20:30)
[2023-07-16] MEDS: Donepezil HCl 5 MG TAB PO SCH (20:33)
[2023-07-16] MEDS: Terazosin HCl 1 MG CAP PO SCH (20:33)
[2023-07-16] MEDS: Atorvastatin Calcium 10 MG TAB PO SCH (20:33)
[2023-07-16] MEDS: traZODone HCl 50 MG TAB PO SCH (20:33)
[2023-07-16] MEDS: Melatonin 3 MG TAB PO SCH (20:34)
[2023-07-16] MEDS: QUEtiapine 25 MG TAB PO SCH (20:34)
[2023-07-17 07:36] VITALS: BP 139/81; TEMP 98.1
[2023-07-17] MEDS: levETIRAcetam 500 MG TAB PO SCH (07:51)
[2023-07-17] MEDS: Allopurinol 100 MG TAB PO SCH (07:51)
[2023-07-17] MEDS: Famotidine 20 MG TAB PO SCH (07:51)
[2023-07-17] MEDS: Amantadine HCl 100 mg Capsule PO SCH (07:51)
[2023-07-17] MEDS: Baclofen 10 MG TAB PO SCH (07:52)
[2023-07-17] MEDS: Losartan 25 MG TAB PO SCH (07:52)
[2023-07-17] MEDS: Metoprolol Tartrate 50 MG TAB PO SCH ×2 (07:52→07:55)
[2023-07-17] MEDS: Polyethylene Glycol 3350 17 GM Packet PO SCH (07:53)
[2023-07-17] MEDS: Artificial Tear Sol 15 ML BOT EA EYE PRN (07:53)
[2023-07-17] MEDS: Venlafaxine HCl 25 MG TAB PO SCH (07:53)
[2023-07-17] MEDS: Amlodipine 10 MG TAB PO SCH (08:20)
== END 2023-07-17 10:25 | disposition home health service (06) | DRG 57 ==
LOC: NAV ACUTE 06-20 12:13
PROVIDERS: ADMIT Family Medicine; ATTEND Family Medicine
DX: I69.354 Hemiplegia and hemiparesis following cerebral infarction affecting left non-dominant side (principal); I10 Essential (primary) hypertension; E78.5 Hyperlipidemia, unspecified; G40.909 Epilepsy, unspecified, not intractable, without status epilepticus; G47.33 Obstructive sleep apnea (adult) (pediatric); M62.838 Other muscle spasm; F32.A Depression, unspecified; G47.00 Insomnia, unspecified; N40.0 Benign prostatic hyperplasia without lower urinary tract symptoms; M25.511 Pain in right shoulder; G89.29 Other chronic pain; M10.9 Gout, unspecified; K59.00 Constipation, unspecified; Z87.891 Personal history of nicotine dependence; Z98.890 Other specified postprocedural states
CPT/HCPCS: 36415; 36416; 80048; 80053; 80177; 85025